=== PATIENT | female | born 2000 | race Hispanic/Latino ===

== ENCOUNTER 2022-04-09 07:07 | Emergency (ER) | payer OTHER ==
[~2022-04-09] VITALS: Ht 160 cm; Wt 83.1 kg
[2022-04-09 07:08] VITALS: BP 129/70
[2022-04-09] MEDS ORDERED: NITROFURANTOIN (MACROBID) 100 MG CAP PO ONE (08:45)
[2022-04-09] MEDS ORDERED: MACR100C43 PO ×2 (08:46→08:47)
== END 2022-04-09 08:57 | disposition home or self-care (01) ==
LOC: M ED 07:07
DX: N30.00 Acute cystitis without hematuria (principal)